=== PATIENT | female | born 1985 | race African-American/Black ===

== ENCOUNTER 2016-10-16 18:55 | Emergency (ER) | payer MEDICAID ==
[~2016-10-16] VITALS: Ht 154.9 cm; Wt 88.5 kg
[2016-10-16 19:10] VITALS: BP 136/79
[2016-10-16 20:05] VITALS: BP 130/74
[2016-10-16 20:10] LABS: BASOPHILS % (AUTO) 0.8 % (0.0-2.0); EOSINOPHILS % (AUTO) 3.7 % (0.0-3.0); LYMPHOCYTES % (AUTO) 38.3 % (20.0-45.0); MEAN CORPUSCULAR HEMOGLOBIN 33.1 PG (27.0-31.0); MEAN CORPUSCULAR HGB CONC 35.5 G/DL (32.0-36.0); MEAN CORPUSCULAR VOLUME 93 FL (80-99); MEAN PLATELET VOLUME 6.1 FL (6.5-10.1); MONOCYTES % (AUTO) 5.3 % (1.0-10.0); NEUTROPHILS % (AUTO) 51.9 % (45.0-75.0); PLATELET COUNT 184 K/UL (150-450); RED BLOOD COUNT 4.23 M/UL (4.20-5.40); RED CELL DISTRIBUTION WIDTH 12.2 % (11.6-14.8); WHITE BLOOD COUNT 8.4 K/UL (4.8-10.8)
[2016-10-16 20:11] LABS: APPEARANCE,URINE CLEAR; KETONES,URINE NEGATIVE (NEGATIVE); LEUKOCYTE ESTERASE ,URINE NEGATIVE (NEGATIVE); NITRITE,URINE NEGATIVE (NEGATIVE); PH,URINE 6 (4.5-8.0); PROTEIN,URINE NEGATIVE (NEGATIVE); UROBILINOGEN,URINE 1 MG/DL (0.0-1.0)
[2016-10-16 20:26] LABS: ALANINE AMINOTRANSFERASE 7 U/L (3-33); ANION GAP 12 (5-15); ASPARTATE AMINO TRANSFERASE 10 U/L (5-40); CALCIUM 8.7 mg/dL (8.6-10.2); CARBON DIOXIDE 24 mEQ/L (20-30); CHLORIDE 102 mEQ/L (98-107); CREATININE 0.8 mg/dL (0.5-0.9); GLOMERULAR FILTRATION RATE > 60 mL/min (>60); HEMOLYSIS 6; LIPASE 30 U/L (< 60); POTASSIUM 3.7 mEQ/L (3.4-4.9); SODIUM 138 mEQ/L (135-145); TOTAL PROTEIN 6.5 g/dL (6.6-8.7)
[2016-10-16 22:00] VITALS: BP 128/75
--- NOTE | 2016-10-16 23:13 | Emergency Room Report ---
History of Present Illness General Chief Complaint: Abdominal Pain Source: Patient Present Illness HPI This patient states that she has had pain in her left upper abdomen that comes and goes and migrates around her abdomen. She states she's had these symptoms for the past few weeks. She states that she has had some nausea. She denies significant vomiting. She denies diarrhea. She admits that she has had difficulty with constipation. She denies dysuria or hematuria. She states that she could not be because she has a Norplant in her arm. She denies fever or chills. She has no other complaints. Allergies: Coded Allergies: No Known Allergies (Unverified , 10/16/16) Patient History Past Medical History: none Past Surgical History: none Social History: Reports: smoking, Denies: alcohol use, drug use Last Menstrual Period: insert ERO Now: No : 3 Para: 2 Reviewed Nursing Documentation: PMH: Agreed, PSxH: Agreed Nursing Documentation-PMH Past Medical History: No Stated History Review of Systems All Other Systems: negative except mentioned in HPI Physical Exam Vital Signs Date Time Temp Pulse Resp B/P Pulse Ox O2 Delivery O2 Flow Rate FiO2 10/16/16 19:00 98.4 94 18 128/79 100 Room Air Sp02 EP Interpretation: reviewed, normal General Appearance: no apparent distress, alert, GCS 15, non-toxic Head: normocephalic, atraumatic Eyes: bilateral eye PERRL, bilateral eye normal inspection ENT: hearing grossly normal, normal pharynx, no angioedema, normal voice Neck: full range of motion, supple/symm/no masses Respiratory: chest non-tender, lungs clear, normal breath sounds, speaking full sentences Cardiovascular #1: regular rate, rhythm, no edema Gastrointestinal: normal bowel sounds, soft, non-distended, no guarding, no rebound, tenderness - TTP in LUQ Rectal: deferred Musculoskeletal: back normal, gait/station normal, normal range of motion, non- tender Neurologic: alert, oriented x3, responsive, motor strength/tone normal, sensory intact, speech normal Psychiatric: judgement/insight normal, memory normal, mood/affect normal, no suicidal/homicidal ideation Skin: normal color, no rash, warm/dry, well hydrated Medical Decision Making Diagnostic Impression: Primary Impression: Abdominal pain Additional Impression: Constipation ER Course This patient complained of abdominal pain that is ongoing. The patient also reports difficulty with bowel movements and constipation. Basic laboratory workup to include CBC, CMP and urinalysis are negative. Patient's hCG is negative. I had planned on treating this patient with a bowel regimen and discharging her home as I have low suspicion sure intra-abdominal process, however, the patient insisted on a CT of her abdomen and pelvis stating that she thinks something is wrong. I did educate the patient on the dangers of unnecessary radiation. However, the patient insisted. CT of the abdomen and pelvis showed no acute findings. I will go ahead and treat this patient with a bowel regimen. I did not identify an emergency medical condition. The patient given return precautions and followup instructions. Labs Test 10/16/16 19:50 White Blood Count 8.4 K/UL (4.8-10.8) Red Blood Count 4.23 M/UL (4.20-5.40) Hemoglobin 14.0 G/DL (12.0-16.0) Hematocrit 39.4 % (37.0-47.0) Mean Corpuscular Volume 93 FL (80-99) Mean Corpuscular Hemoglobin 33.1 PG (27.0-31.0) Mean Corpuscular Hemoglobin Concent 35.5 G/DL (32.0-36.0) Red Cell Distribution Width 12.2 % (11.6-14.8) Platelet Count 184 K/UL (150-450) Mean Platelet Volume 6.1 FL (6.5-10.1) Neutrophils (%) (Auto) 51.9 % (45.0-75.0) Lymphocytes (%) (Auto) 38.3 % (20.0-45.0) Monocytes (%) (Auto) 5.3 % (1.0-10.0) Eosinophils (%) (Auto) 3.7 % (0.0-3.0) Basophils (%) (Auto) 0.8 % (0.0-2.0) Urine Color Yellow Urine Appearance Clear Urine pH 6 (4.5-8.0) Urine Specific [place] 1.020 (1.005-1.035) Urine Protein Negative (NEGATIVE) Urine Glucose (UA) Negative (NEGATIVE) Urine Ketones Negative (NEGATIVE) Urine Occult Blood Negative (NEGATIVE) Urine Nitrite Negative (NEGATIVE) Urine Bilirubin Negative (NEGATIVE) Urine Urobilinogen 1 MG/DL (0.0-1.0) Urine Leukocyte Esterase Negative (NEGATIVE) Urine HCG, Qualitative Negative Sodium Level 138 mEQ/L (135-145) Potassium Level 3.7 mEQ/L (3.4-4.9) Chloride Level 102 mEQ/L (98-107) Carbon Dioxide Level 24 mEQ/L (20-30) Anion Gap 12 (5-15) Blood Urea Nitrogen 11 mg/dL (7-23) Creatinine 0.8 mg/dL (0.5-0.9) Estimat Glomerular Filtration Rate > 60 mL/min (>60) Glucose Level 98 mg/dL (74-106) Calcium Level 8.7 mg/dL (8.6-10.2) Total Bilirubin < 0.2 mg/dL (0.0-1.2) Aspartate Amino Transf (AST/SGOT) 10 U/L (5-40) Alanine Aminotransferase (ALT/SGPT) 7 U/L (3-33) Alkaline Phosphatase 58 U/L (35-104) Total Protein 6.5 g/dL (6.6-8.7) Albumin 3.4 g/dL (3.5-5.2) Globulin 3.1 g/dL Albumin/Globulin Ratio 1.0 (1.0-2.7) Lipase 30 U/L (< 60) CT/MRI/US Diagnostic Results CT/MRI/US Diagnostic Results : Imaging Test Ordered: Ct abd/pelvis Impression No acute findings. Small sliding hiatal hernia. Hepatomegaly. See official report. Last Vital Signs Date Time Temp Pulse Resp B/P Pulse Ox O2 Delivery O2 Flow Rate FiO2 10/16/16 20:05 74 18 130/74 100 Room Air 10/16/16 19:10 98.4 Disposition: HOME, SELF-CARE Condition: Improved Referrals: FARTUN SALINAS (PCP) NAVNEET SHAVER D.O. Oct 16, 2016 23:13
[2016-10-16] MEDS ORDERED: MIRALAX17 G2 ORAL (23:19)
[2016-10-16] MEDS ORDERED: COLACE100 MG ORAL (23:19)
[2016-10-16 23:30] VITALS: BP 130/76
--- NOTE | 2016-10-17 09:24 | Diagnostic Imaging Report ---
Indications: Abdominal pain Technique: Continuous helical CT imaging of the abdomen and pelvis was performed with automatic exposure control following administration of nonionic IV contrast only, on a Siemens sensation [address] scanner. Axial, coronal, sagittal images were reconstructed at 5 mm slice thickness. No oral contrast was administered per requesting physician's order, despite no contraindications listed in either submitted clinical data or tech note.. CTDI volume(s): 17 mGy Total DLP: 835 mGy-cm Findings: Comparison: None Lack of oral contrast limits evaluation of gastrointestinal tract, nondilated throughout. Appendix unremarkable. No obvious mural thickening, adjacent stranding, extraluminal gas or fluid collections identified, aside from a minimal amount of free fluid in the pelvic cul-de-sac. 4 cm circumscribed, low-attenuation mass/cyst in left adnexal region. Gallbladder contracted, limiting evaluation. Liver 20 cm, otherwise unremarkable pancreas, spleen, adrenal glands, kidneys, unopacified ureters and urinary bladder, uterus, right adnexal region, vascular structures, retroperitoneum, mesentery, remainder visualized abdominopelvic anatomy unremarkable. Lung bases and adjacent pleural surfaces clear. No focal skeletal abnormalities are identified. IMPRESSION: Unremarkable appendix--no evidence of acute appendicitis Left adnexal mass most likely physiologic ovarian cyst. Other etiologies not excludable. Pelvic ultrasound suggested for further evaluation. Minimal pelvic free fluid, nonspecific, may be physiologic/due to recent cyst leak Hepatomegaly Limited evaluation of gallbladder due to contraction No evidence of acute abdominopelvic disease, with limitation as described. Subtle but potentially significant abnormalities the gastrointestinal tract may be missed. Repeat CT scan with full oral and IV contrast preparation recommended for more complete evaluation, as clinically indicated This correlates with [facility] preliminary report.
== END 2016-10-16 23:30 | disposition home or self-care (01) ==
LOC: EMR 19:31
DX: R10.12 Left upper quadrant pain (principal); K59.00 Constipation, unspecified; R16.0 Hepatomegaly, not elsewhere classified
CPT/HCPCS: 36415; 74177; 80053; 81003; 81025; 83690; 85025; 96360; 99284; Q9967; 96374